=== PATIENT | male | born 1945 | race African-American/Black ===

== ENCOUNTER 2017-09-05 03:41 | Inpatient (IN) | payer MEDICARE ==
[2017-09-05 04:36] LABS: BILIRUBIN,URINE NEGATIVE (NEG); CLARITY,URINE CLEAR; COLOR,URINE YELLOW; GLUCOSE,URINE NEGATIVE (NEG); NITRITE,URINE NEGATIVE (NEG); PH,URINE 6.5; PROTEIN,URINE NEGATIVE (NEG-TRACE); UROBILINOGEN,URINE 0.2 mg/dL (0.2 mg/dL)
[2017-09-05 04:40] LABS: ADD MAN DIFF? NO
[2017-09-05 04:42] LABS: BASO % 1 % (0-3); EOS # 0.1 x10^3/uL (0.0-0.7); EOS % 3 % (0-3); HEMATOCRIT 41.3 % (39.0-53.0); HEMOGLOBIN 13.6 g/dL (13.0-17.5); LYMPH # 1.8 x10^3/uL (1.0-4.8); LYMPH % 41 % (24-48); MEAN CORPUSCULAR HEMOGLOBIN 26 pg (25-35); MEAN CORPUSCULAR HGB CONC 33 g/dL (31-37); MEAN CORPUSCULAR VOLUME 80 fL (79-100); MONO # 0.5 x10^3/uL (0.0-1.1); MONO % 11 % (0-9); NEUT # 1.9 x10^3uL (1.8-7.7); NEUT % 45 % (31-73); PLATELET COUNT 156 x10^3/uL (140-400); RED BLOOD COUNT 5.18 x10^6/uL (4.30-5.70); RED CELL DISTRIBUTION WIDTH 14.5 % (11.5-14.5); WHITE BLOOD COUNT 4.3 x10^3/uL (4.0-11.0)
[2017-09-05 04:44] LABS: BACTERIA,URINE 0 /HPF (0-FEW); RBC,URINE 0 /HPF (0-2); WBC,URINE 0 /HPF (0-4)
[2017-09-05] MEDS: cloNIDine HCL 0.1 MG TABLET PO (04:49)
[2017-09-05 04:53] LABS: INR 3.5 (0.8-1.1)
[2017-09-05 04:57] LABS: ANION GAP 10 (6-14); BLOOD UREA NITROGEN 18 mg/dL (8-26); BUN/CREATININE RATIO 16 (6-20); CALCIUM 8.9 mg/dL (8.5-10.1); CARBON DIOXIDE 24 mmol/L (21-32); CHLORIDE 108 mmol/L (98-107); CREATININE 1.1 mg/dL (0.7-1.3); GFR 79.8; GLUCOSE 105 mg/dL (70-99); POTASSIUM 3.6 mmol/L (3.5-5.1); SODIUM 142 mmol/L (136-145)
[2017-09-05] MEDS ORDERED: 0.9 % SOD CHL for STERILE FIELD 10 ML DISP.SYRIN. (04:59)
[2017-09-05 05:00] LABS: TROPONINI < 0.017 ng/mL (0.000-0.055)
[2017-09-05 05:02] LABS: ALBUMIN 3.3 g/dL (3.4-5.0); ALBUMIN/GLOBULIN RATIO 0.8 (1.0-1.7); ALK PHOS 63 U/L (46-116); ALT (SGPT) 31 U/L (16-63); AST (SGOT) 33 U/L (15-37); TOTAL BILIRUBIN 0.1 mg/dL (0.2-1.0); TOTAL PROTEIN 7.3 g/dL (6.4-8.2)
[2017-09-05] MEDS ORDERED: LABETALOL 20 MG/4 ML DISP.SYRIN. IVP (05:30)
[2017-09-05] MEDS: LABETALOL 20 MG/4 ML DISP.SYRIN. IVP (05:45)
[2017-09-05] MEDS ORDERED: amLODIPine BESYLATE 5 MG TABLET PO (09:00)
[2017-09-05 09:19] LABS: TROPONINI < 0.017 ng/mL (0.000-0.055)
[2017-09-05] MEDS ORDERED: ENOXAPARIN 40 MG/0.4 ML SYRINGE. SQ ×2 (10:00→14:00)
[2017-09-05 12:09] LABS: TROPONINI < 0.017 ng/mL (0.000-0.055)
[2017-09-05] MEDS ORDERED: DOCUSATE SODIUM 100 MG CAPSULE. PO (13:45)
[2017-09-05] MEDS ORDERED: traMADol 50 MG TABLET PO (13:45)
[2017-09-05] MEDS ORDERED: MORPHINE SULFATE 4 MG/ML DISP.SYRIN. IV (13:45)
[2017-09-05] MEDS ORDERED: ONDANSETRON PF 4 MG/2 ML VIAL. IV (13:45)
[2017-09-05] MEDS ORDERED: hydrALAZINE 20 MG/ML VIAL. IVP (13:45)
[2017-09-05] MEDS ORDERED: ACETAMINOPHEN 325 MG TABLET. PO (13:45)
[2017-09-05] MEDS ORDERED: WARFARIN 10 MG TABLET. PO (17:00)
[2017-09-05] MEDS: TAMSULOSIN 0.4 MG CAP.ER.24H. PO (20:35)
[2017-09-05] MEDS: FINASTERIDE 5 MG TABLET. PO (20:35)
[2017-09-05] MEDS ORDERED: TAMSULOSIN 0.4 MG CAP.ER.24H. PO (21:00)
[2017-09-06 06:10] LABS: ADD MAN DIFF? NO; BASO % 0 % (0-3); EOS # 0.1 x10^3/uL (0.0-0.7); EOS % 2 % (0-3); HEMATOCRIT 40.4 % (39.0-53.0); HEMOGLOBIN 13.2 g/dL (13.0-17.5); LYMPH # 1.4 x10^3/uL (1.0-4.8); LYMPH % 26 % (24-48); MEAN CORPUSCULAR HEMOGLOBIN 26 pg (25-35); MEAN CORPUSCULAR HGB CONC 33 g/dL (31-37); MEAN CORPUSCULAR VOLUME 80 fL (79-100); MONO # 0.5 x10^3/uL (0.0-1.1); MONO % 10 % (0-9); NEUT # 3.4 x10^3uL (1.8-7.7); NEUT % 62 % (31-73); PLATELET COUNT 165 x10^3/uL (140-400); RED BLOOD COUNT 5.04 x10^6/uL (4.30-5.70); RED CELL DISTRIBUTION WIDTH 14.6 % (11.5-14.5); WHITE BLOOD COUNT 5.4 x10^3/uL (4.0-11.0)
[2017-09-06 06:43] LABS: ANION GAP 10 (6-14); BLOOD UREA NITROGEN 13 mg/dL (8-26); CALCIUM 9.2 mg/dL (8.5-10.1); CARBON DIOXIDE 24 mmol/L (21-32); CHLORIDE 107 mmol/L (98-107); CREATININE 1.1 mg/dL (0.7-1.3); GFR 79.8; GLUCOSE 91 mg/dL (70-99); POTASSIUM 4.2 mmol/L (3.5-5.1); SODIUM 141 mmol/L (136-145)
[2017-09-06] MEDS ORDERED: amLODIPine BESYLATE 5 MG TABLET PO (09:00)
[2017-09-06 09:16] LABS: INR 3.1 (0.8-1.1); PROTHROMBIN TIME PATIENT 30.3 SEC (11.7-14.0)
[2017-09-06] MEDS: amLODIPine BESYLATE 5 MG TABLET PO (09:18)
== END 2017-09-06 18:34 | disposition home or self-care (01) | DRG 880 ==
LOC: ER 03:41 → 2 NORTH 05:00
DX: F41.9 Anxiety disorder, unspecified (principal); E78.00 Pure hypercholesterolemia, unspecified; R33.8 Other retention of urine; N40.1 Benign prostatic hyperplasia with lower urinary tract symptoms; I25.2 Old myocardial infarction; E78.5 Hyperlipidemia, unspecified; I10 Essential (primary) hypertension; K21.9 Gastro-esophageal reflux disease without esophagitis; Z86.711 Personal history of pulmonary embolism; Z86.718 Personal history of other venous thrombosis and embolism; Z79.01 Long term (current) use of anticoagulants; Z95.828 Presence of other vascular implants and grafts; Z82.49 Family history of ischemic heart disease and other diseases of the circulatory system; Z81.8 Family history of other mental and behavioral disorders; Z83.3 Family history of diabetes mellitus
CPT/HCPCS: 36415; 51702; 71045; 80048; 80053; 81001; 84484; 85025; 85610; 93005; 99285-25

== ENCOUNTER 2018-01-21 22:10 | Emergency (ER) | payer MEDICARE ==
[2018-01-21 23:23] LABS: ADD MAN DIFF? NO
[2018-01-21] MEDS: IV NORMAL SALINE 1000ML BAG 1,000 ML IV (23:25)
[2018-01-21 23:28] LABS: BASO % 1 % (0-3); EOS # 0.1 x10^3/uL (0.0-0.7); EOS % 2 % (0-3); HEMATOCRIT 41.4 % (39.0-53.0); LYMPH # 1.6 x10^3/uL (1.0-4.8); LYMPH % 35 % (24-48); MEAN CORPUSCULAR HEMOGLOBIN 28 pg (25-35); MEAN CORPUSCULAR HGB CONC 34 g/dL (31-37); MEAN CORPUSCULAR VOLUME 81 fL (79-100); MONO # 0.4 x10^3/uL (0.0-1.1); MONO % 8 % (0-9); NEUT # 2.6 x10^3uL (1.8-7.7); NEUT % 54 % (31-73); PLATELET COUNT 182 x10^3/uL (140-400); RED CELL DISTRIBUTION WIDTH 14.7 % (11.5-14.5); WHITE BLOOD COUNT 4.8 x10^3/uL (4.0-11.0)
[2018-01-21 23:29] LABS: BILIRUBIN,URINE NEGATIVE (NEG); CLARITY,URINE TURBID; COLOR,URINE RED; GLUCOSE,URINE NEGATIVE (NEG); NITRITE,URINE NEGATIVE (NEG); PH,URINE 5.5; PROTEIN,URINE 30 mg/dL (NEG-TRACE); UROBILINOGEN,URINE 0.2 mg/dL (0.2 mg/dL)
[2018-01-21 23:34] LABS: ANION GAP 11 (6-14); BLOOD UREA NITROGEN 14 mg/dL (8-26); BUN/CREATININE RATIO 11 (6-20); CALCIUM 9.3 mg/dL (8.5-10.1); CARBON DIOXIDE 24 mmol/L (21-32); CHLORIDE 106 mmol/L (98-107); CREATININE 1.3 mg/dL (0.7-1.3); GFR 65.8; GLUCOSE 100 mg/dL (70-99); POTASSIUM 4.1 mmol/L (3.5-5.1); SODIUM 141 mmol/L (136-145)
[2018-01-21 23:35] LABS: INR 1.8 (0.8-1.1); PARTIAL THROMBOPLASTIN TIME 38 SEC (24-38); PROTHROMBIN TIME PATIENT 20.4 SEC (11.7-14.0); RBC,URINE TNTC /HPF (0-2)
[2018-01-21 23:37] LABS: BACTERIA,URINE MANY /HPF (0-FEW)
[2018-01-21 23:40] LABS: ALBUMIN 3.8 g/dL (3.4-5.0); ALK PHOS 70 U/L (46-116); ALT (SGPT) 37 U/L (16-63); AST (SGOT) 38 U/L (15-37); TOTAL BILIRUBIN 0.2 mg/dL (0.2-1.0); TOTAL PROTEIN 7.7 g/dL (6.4-8.2)
== END 2018-01-22 01:22 | disposition home or self-care (01) ==
LOC: ER 01-22 01:22
DX: N30.01 Acute cystitis with hematuria (principal); E78.00 Pure hypercholesterolemia, unspecified; I10 Essential (primary) hypertension; Z86.718 Personal history of other venous thrombosis and embolism; N40.0 Benign prostatic hyperplasia without lower urinary tract symptoms
CPT/HCPCS: 36415; 80053; 81001; 85025; 85610; 85730; 96365; 99284-25; J0690; J7030

== ENCOUNTER 2018-09-13 00:42 | Emergency (ER) | payer MEDICARE ==
[2018-01-22 00:53] VITALS: BP 174/85
[~2018-09-13 00:42] MED LIST: AMLO5TAB4 PO; ATOR20TA58 PO; CEPH-264 PO; FINA5TAB4 PO; TAMS0.4C2 PO; TAMS0.4C97 PO; WARF10TA40 PO
== END 2018-09-13 02:50 | disposition left against medical advice (07) ==
LOC: ER 00:42
DX: R31.9 Hematuria, unspecified (principal); Z53.21 Procedure and treatment not carried out due to patient leaving prior to being seen by health care provider

== ENCOUNTER 2018-12-29 10:52 | Observation (INO) | payer MEDICARE, BC ==
[~2018-12-29] VITALS: Ht 175.3 cm; Wt 92.7 kg
--- NOTE | 2018-12-29 11:35 | PHYS DOC ---
Past Medical History Past Medical History: Diabetes-Type II, DVT, High Cholesterol, Hypertension, Other Additional Past Medical Histor: PULM EMBOLISM, HEMO, ENLARGED PROSTATE, ENLARGED AORTA &HEART Past Surgical History: Other Additional Past Surgical Histo: IVC FILTER, BACK SX X3, ACHILES LEFT Alcohol Use: None Drug Use: None Adult General Chief Complaint Chief Complaint: CHEST PAIN HPI HPI 73-year-old male, with past history of hypertension, diabetes, thromboembolic disease, currently on Xarelto, with a past history of multiple pulmonary emboli and an IVC filter, who presents to the emergency department for evaluation of intermittent chest discomfort today, described as an achiness in the center of his chest. He denies any shortness of breath, but this chest discomfort is worsened with exertion. He denies any diaphoresis, nausea, vomiting, dizziness or lightheadedness. There are no alleviating or exacerbating factors to his symptoms. He is followed by Dr. Newton, currently at the [place]. Chest pain has been intermittent, and the patient is not having any pain at this time. Review of Systems Review of Systems Constitutional: Denies fever or chills [] Eyes: Denies change in visual acuity, redness, or eye pain [] HENT: Denies nasal congestion or sore throat [] Respiratory: Denies cough or shortness of breath [] Cardiovascular: No additional information not addressed in HPI [] GI: Denies abdominal pain, nausea, vomiting, bloody stools or diarrhea [] : Denies dysuria or hematuria [] Musculoskeletal: Denies back pain or joint pain [] Integument: Denies rash or skin lesions [] Neurologic: Denies headache, focal weakness or sensory changes [] Endocrine: Denies polyuria or polydipsia [] All other systems were reviewed and found to be within normal limits, except as documented in this note. Current Medications Current Medications Current Medications Medications (Trade) Dose Ordered Sig/Eugene Start Time Stop Time Status Last Admin Dose Admin Aspirin (Children'S Aspirin) 162 mg 1X ONCE 12/29/18 12:00 12/29/18 12:01 DC 12/29/18 11:53 162 MG Nitroglycerin (Nitro-Bid Oint) 1 inch 1X ONCE 12/29/18 12:00 12/29/18 12:01 DC 12/29/18 11:54 1 INCH Allergies Allergies Allergies Coded Allergies Type Severity Reaction Last Updated Verified No Known Drug Allergies 12/29/18 No Physical Exam Physical Exam PHYSICAL EXAM: CONSTITUTIONAL: Well developed, well nourished HEAD: normocephalic, atraumatic EENT: PERRL, EOMI. Conjunctivae normal color, sclerae non-icteric; moist mucous membranes. NECK: Supple, non-tender; no meningismus. LUNGS: Lungs CTA, breathing even and unlabored. Normal air movement. HEART: Regular rate and rhythm, no murmur CHEST: No deformity; non-tender ABDOMEN: The abdomen is soft, and non-tender, no masses or bruits. EXTREM: Normal ROM; no deformity, no calf tenderness. Normal pulses palpable in all extremities. There is no pedal edema. SKIN: No rash; no diaphoresis NEURO: Alert; normal speech and cognition; CN's grossly intact; strength grossly intact without focal deficit. BACK: No CVA TTP. Current Patient Data Vital Signs Vital Signs Date Time Temp Pulse Resp B/P (MAP) Pulse Ox O2 Delivery O2 Flow Rate FiO2 12/29/18 11:54 54 143/75 12/29/18 10:54 98.2 18 98 Room Air 98.2 Lab Values Laboratory Tests Test 12/29/18 11:05 White Blood Count 3.2 x10^3/uL (4.0-11.0) L Red Blood Count 4.90 x10^6/uL (4.30-5.70) Hemoglobin 13.1 g/dL (13.0-17.5) Hematocrit 39.3 % (39.0-53.0) Mean Corpuscular Volume 80 fL (79-100) Mean Corpuscular Hemoglobin 27 pg (25-35) Mean Corpuscular Hemoglobin Concent 34 g/dL (31-37) Red Cell Distribution Width 14.9 % (11.5-14.5) H Platelet Count 159 x10^3/uL (140-400) Neutrophils (%) (Auto) 40 % (31-73) Lymphocytes (%) (Auto) 48 % (24-48) Monocytes (%) (Auto) 9 % (0-9) Eosinophils (%) (Auto) 3 % (0-3) Basophils (%) (Auto) 1 % (0-3) Neutrophils # (Auto) 1.3 x10^3uL (1.8-7.7) L Lymphocytes # (Auto) 1.5 x10^3/uL (1.0-4.8) Monocytes # (Auto) 0.3 x10^3/uL (0.0-1.1) Eosinophils # (Auto) 0.1 x10^3/uL (0.0-0.7) Basophils # (Auto) 0.0 x10^3/uL (0.0-0.2) Sodium Level 140 mmol/L (136-145) Potassium Level 3.8 mmol/L (3.5-5.1) Chloride Level 105 mmol/L (98-107) Carbon Dioxide Level 26 mmol/L (21-32) Anion Gap 9 (6-14) Blood Urea Nitrogen 11 mg/dL (8-26) Creatinine 1.3 mg/dL (0.7-1.3) Estimated GFR (Cockcroft-Gault) 65.7 BUN/Creatinine Ratio 8 (6-20) Glucose Level 103 mg/dL (70-99) H Calcium Level 9.1 mg/dL (8.5-10.1) Total Bilirubin 0.4 mg/dL (0.2-1.0) Aspartate Amino Transferase (AST) 31 U/L (15-37) Alanine Aminotransferase (ALT) 30 U/L (16-63) Alkaline Phosphatase 57 U/L (46-116) Troponin I Quantitative < 0.017 ng/mL (0.000-0.055) UD-Zco-X-Type Natriuretic Peptide 17 pg/mL (0-124) Total Protein 7.6 g/dL (6.4-8.2) Albumin 3.5 g/dL (3.4-5.0) Albumin/Globulin Ratio 0.9 (1.0-1.7) L Laboratory Tests 12/29/18 11:05 Laboratory Tests 12/29/18 11:05 EKG EKG [Normal sinus rhythm a rate of 61 bpm with APCs, left axis deviation, normal intervals, there is inferior lateral ST/T changes or T wave inversion, somewhat more pronounced, but not significantly changed, compared to patient's prior EKG.] Radiology/Procedures Radiology/Procedures [PROCEDURE: PORTABLE CHEST 1V Chest radiograph 12/29/2018 11:29 AM INDICATION: Chest pain COMPARISON: September 05, 2017 TECHNIQUE: Portable upright frontal view of the chest is provided. FINDINGS: The cardiomediastinal silhouette is borderline enlarged, stable. There are no pleural effusions. There is no pulmonary vascular congestion. There is no pneumothorax. The lungs are clear. No significant osseous abnormality is identified. IMPRESSION: No acute cardiopulmonary process.] Course & Med Decision Making Course & Med Decision Making Pertinent Labs and Imaging studies reviewed. (See chart for details) [] Dragon Disclaimer Dragon Disclaimer This electronic medical record was generated, in whole or in part, using a voice recognition dictation system. Departure Departure Impression: Primary Impression: Chest pain Disposition: ADMITTED INPATIENT Admitting Physician: ARMAND Condition: STABLE Referrals: ELLY NEWTON MD (PCP) WINIFRED SAXENA MD Dec 29, 2018 11:35
[2018-12-29 11:46] LABS: BASO % 1 % (0-3); EOS # 0.1 x10^3/uL (0.0-0.7); EOS % 3 % (0-3); HEMATOCRIT 39.3 % (39.0-53.0); HEMOGLOBIN 13.1 g/dL (13.0-17.5); LYMPH # 1.5 x10^3/uL (1.0-4.8); LYMPH % 48 % (24-48); MEAN CORPUSCULAR HEMOGLOBIN 27 pg (25-35); MEAN CORPUSCULAR HGB CONC 34 g/dL (31-37); MEAN CORPUSCULAR VOLUME 80 fL (79-100); MONO # 0.3 x10^3/uL (0.0-1.1); MONO % 9 % (0-9); NEUT # 1.3 x10^3uL (1.8-7.7); NEUT % 40 % (31-73); PLATELET COUNT 159 x10^3/uL (140-400); RED CELL DISTRIBUTION WIDTH 14.9 % (11.5-14.5); WHITE BLOOD COUNT 3.2 x10^3/uL (4.0-11.0)
[2018-12-29] MEDS ORDERED: ASPIRIN CHEWABLE 81 MG TABLET. PO ONE (12:00)
[2018-12-29] MEDS ORDERED: NITROGLYCERIN OINT 1 GM PACKET. TP ONE (12:00)
[2018-12-29 12:02] LABS: CALCIUM 9.1 mg/dL (8.5-10.1); CREATININE 1.3 mg/dL (0.7-1.3); GFR 65.7; POTASSIUM 3.8 mmol/L (3.5-5.1)
[2018-12-29 12:07] LABS: ALBUMIN 3.5 g/dL (3.4-5.0); ALBUMIN/GLOBULIN RATIO 0.9 (1.0-1.7); TOTAL BILIRUBIN 0.4 mg/dL (0.2-1.0); TOTAL PROTEIN 7.6 g/dL (6.4-8.2)
--- NOTE | 2018-12-29 12:16 | RAD ---
Chest radiograph 12/29/2018 11:29 AM INDICATION: Chest pain COMPARISON: September 05, 2017 TECHNIQUE: Portable upright frontal view of the chest is provided. FINDINGS: The cardiomediastinal silhouette is borderline enlarged, stable. There are no pleural effusions. There is no pulmonary vascular congestion. There is no pneumothorax. The lungs are clear. No significant osseous abnormality is identified. IMPRESSION: No acute cardiopulmonary process. Electronically signed by: Cathy Mendoza MD (12/29/2018 12:13 PM) [id number]
[2018-12-29] MEDS ORDERED: ONDANSETRON PF 4 MG/2 ML VIAL. IV PRN (12:45)
[2018-12-29] MEDS ORDERED: TEMAZEPAM 7.5 MG CAPSULE PO PRN (12:45)
[2018-12-29] MEDS ORDERED: hydrALAZINE 20 MG/ML VIAL. IVP PRN (12:45)
[2018-12-29] MEDS ORDERED: HYDROcodone/APAP 5/325MG 1 TAB TABLET PO PRN (12:45)
[2018-12-29] MEDS ORDERED: ACETAMINOPHEN 500 MG TABLET PO PRN (12:45)
[2018-12-29] MEDS ORDERED: MORPHINE SULFATE 2 MG/ML VIAL. IV PRN (12:45)
--- NOTE | 2018-12-29 12:55 | PDOC1 ---
History and Physical Date of Admission Date of Admission DATE: 12/29/18 TIME: 12:51 Identification/Chief Complaint Chief Complaint Chest pain intermittent 3 days Source Source: Caregiver, Chart review, Patient History of Present Illness History of Present Illness 73-year-old -[place] male, known patient of Dr. Newton, usually goes to [place], chest pain intermittent and described as left-sided chest heaviness 3 days No identifiable precipitating or alleviating factor. nO radiation, No diapho resis, may be SOA, no presyncopal symptoms. History of hypertension DVT and PE, no known personal CAD, was previously on warfarin, then shifted to Xarelto. Has some penile urethral stricture and BPH symptoms planned for some urologic procedure on January. Claims compliance to BP meds and Xarelto. WBC 3.2, the rest of the labs okay. Blood pressure is on the high side, 140s 150s, asymptomatic aside from chest pain Past Medical History Cardiovascular: HTN Pulmonary: Bronchitis, Pulmonary embolus GI: GERD Renal/: Benign prostatic enlarg. Past Surgical History Past Surgical History: No pertinent history Family History Family History: Hypertension Social History Smoke: No ALCOHOL: none Drugs: None Current Problem List Problem List Problems Medical Problems: (1) Chest pain Status: Acute Current Medications Current Medications Current Medications Aspirin (Children'S Aspirin) 162 mg 1X ONCE PO Last administered on 12/29/18at 11:53; Start 12/29/18 at 12:00; Stop 12/29/18 at 12:01; Status DC Nitroglycerin (Nitro-Bid Oint) 1 inch 1X ONCE TP Last administered on 12/29/18at 11:54; Start 12/29/18 at 12:00; Stop 12/29/18 at 12:01; Status DC Amlodipine Besylate (Norvasc) 25 mg DAILY PO ; Start 12/30/18 at 09:00; Stop 12/30/18 at 09:00; Status DC Finasteride (Proscar) 5 mg QHS PO ; Start 12/29/18 at 21:00 Tamsulosin HCl (Flomax) 0.8 mg QHS PO ; Start 12/29/18 at 21:00 Warfarin Sodium (Coumadin Per Pharmacy) 1 each PRN DAILY PRN MC SEE COMMENTS; Start 12/29/18 at 12:45 Hydralazine HCl (Apresoline Inj) 10 mg PRN Q4HRS PRN IVP ELEVATED BP, SBP>160; Start 12/29/18 at 12:45 Temazepam (Restoril) 7.5 mg PRN QHS PRN PO INSOMNIA 1ST CHOICE; Start 12/29/18 at 12:45 Ondansetron HCl (Zofran) 4 mg PRN Q6HRS PRN IV NAUSEA/VOMITING 1ST CHOICE; Start 12/29/18 at 12:45 Acetaminophen/ Hydrocodone Bitart (Lortab 5/325) 1 tab PRN Q4HRS PRN PO SEVERE PAIN; Start 12/29/18 at 12:45 Acetaminophen (Tylenol) 500 mg PRN Q6HRS PRN PO MILD PAIN / TEMP; Start 12/29/18 at 12:45 Morphine Sulfate (Morphine Sulfate) 1 mg PRN Q2HR PRN IV SEVERE PAIN; Start 12/29/18 at 12:45 Amlodipine Besylate (Norvasc) 2.5 mg DAILY PO ; Start 12/30/18 at 09:00 Active Scripts Active Keflex (Cephalexin) 500 Mg Capsule 1 Cap PO TID Flomax (Tamsulosin Hcl) 0.4 Mg Cap.er.24h 0.8 Mg PO QHS 30 Days Reported Norvasc (Amlodipine Besylate) 5 Mg Tablet 5 Tab PO DAILY Finasteride 5 Mg Tablet 5 Mg PO QHS Warfarin Sodium 10 Mg Tablet 10 Mg PO 1700 Allergies Allergies: Coded Allergies: No Known Drug Allergies (Unverified , 12/29/18) ROS Review of System BPH symptoms, low flow,weak flow, decreased stream, otherwise rest of ROS 14 pt neg, positive for chest pain,as per history of present illness Physical Exam General: Alert, Oriented X3, Cooperative, No acute distress HEENT: Atraumatic, PERRLA, EOMI Lungs: Clear to auscultation, Normal air movement Heart: S1S2, RRR, no thrills, no rubs, no gallops, no murmurs Cardiovascular: S1, S2 Abdomen: Normal bowel sounds, Soft, No tenderness, No hepatosplenomegaly, No masses Male Genitals Exam: normal genitalia, normal prostate Extremities: No clubbing, No cyanosis, No edema, Normal pulses, No tenderness/swelling Skin: No rashes, No breakdown, No significant lesion Neuro: Normal gait, Normal speech, Strength at 5/5 X4 ext, Normal tone, Sensation intact, Cranial nerves 3-12 NL, Reflexes 2+ Psych/Mental Status: Mental status NL, Mood NL Vitals Vitals Vital Signs Date Time Temp Pulse Resp B/P (MAP) Pulse Ox O2 Delivery O2 Flow Rate FiO2 12/29/18 11:54 54 143/75 12/29/18 10:54 98.2 18 98 Room Air 98.2 Labs Labs Laboratory Tests Test 12/29/18 11:05 White Blood Count 3.2 x10^3/uL (4.0-11.0) Red Blood Count 4.90 x10^6/uL (4.30-5.70) Hemoglobin 13.1 g/dL (13.0-17.5) Hematocrit 39.3 % (39.0-53.0) Mean Corpuscular Volume 80 fL (79-100) Mean Corpuscular Hemoglobin 27 pg (25-35) Mean Corpuscular Hemoglobin Concent 34 g/dL (31-37) Red Cell Distribution Width 14.9 % (11.5-14.5) Platelet Count 159 x10^3/uL (140-400) Neutrophils (%) (Auto) 40 % (31-73) Lymphocytes (%) (Auto) 48 % (24-48) Monocytes (%) (Auto) 9 % (0-9) Eosinophils (%) (Auto) 3 % (0-3) Basophils (%) (Auto) 1 % (0-3) Neutrophils # (Auto) 1.3 x10^3uL (1.8-7.7) Lymphocytes # (Auto) 1.5 x10^3/uL (1.0-4.8) Monocytes # (Auto) 0.3 x10^3/uL (0.0-1.1) Eosinophils # (Auto) 0.1 x10^3/uL (0.0-0.7) Basophils # (Auto) 0.0 x10^3/uL (0.0-0.2) Sodium Level 140 mmol/L (136-145) Potassium Level 3.8 mmol/L (3.5-5.1) Chloride Level 105 mmol/L (98-107) Carbon Dioxide Level 26 mmol/L (21-32) Anion Gap 9 (6-14) Blood Urea Nitrogen 11 mg/dL (8-26) Creatinine 1.3 mg/dL (0.7-1.3) Estimated GFR (Cockcroft-Gault) 65.7 BUN/Creatinine Ratio 8 (6-20) Glucose Level 103 mg/dL (70-99) Calcium Level 9.1 mg/dL (8.5-10.1) Total Bilirubin 0.4 mg/dL (0.2-1.0) Aspartate Amino Transf (AST/SGOT) 31 U/L (15-37) Alanine Aminotransferase (ALT/SGPT) 30 U/L (16-63) Alkaline Phosphatase 57 U/L (46-116) Troponin I Quantitative < 0.017 ng/mL (0.000-0.055) QD-Dks-U-Type Natriuretic Peptide 17 pg/mL (0-124) Total Protein 7.6 g/dL (6.4-8.2) Albumin 3.5 g/dL (3.4-5.0) Albumin/Globulin Ratio 0.9 (1.0-1.7) Laboratory Tests Test 12/29/18 11:05 White Blood Count 3.2 x10^3/uL (4.0-11.0) Red Blood Count 4.90 x10^6/uL (4.30-5.70) Hemoglobin 13.1 g/dL (13.0-17.5) Hematocrit 39.3 % (39.0-53.0) Mean Corpuscular Volume 80 fL (79-100) Mean Corpuscular Hemoglobin 27 pg (25-35) Mean Corpuscular Hemoglobin Concent 34 g/dL (31-37) Red Cell Distribution Width 14.9 % (11.5-14.5) Platelet Count 159 x10^3/uL (140-400) Neutrophils (%) (Auto) 40 % (31-73) Lymphocytes (%) (Auto) 48 % (24-48) Monocytes (%) (Auto) 9 % (0-9) Eosinophils (%) (Auto) 3 % (0-3) Basophils (%) (Auto) 1 % (0-3) Neutrophils # (Auto) 1.3 x10^3uL (1.8-7.7) Lymphocytes # (Auto) 1.5 x10^3/uL (1.0-4.8) Monocytes # (Auto) 0.3 x10^3/uL (0.0-1.1) Eosinophils # (Auto) 0.1 x10^3/uL (0.0-0.7) Basophils # (Auto) 0.0 x10^3/uL (0.0-0.2) Sodium Level 140 mmol/L (136-145) Potassium Level 3.8 mmol/L (3.5-5.1) Chloride Level 105 mmol/L (98-107) Carbon Dioxide Level 26 mmol/L (21-32) Anion Gap 9 (6-14) Blood Urea Nitrogen 11 mg/dL (8-26) Creatinine 1.3 mg/dL (0.7-1.3) Estimated GFR (Cockcroft-Gault) 65.7 BUN/Creatinine Ratio 8 (6-20) Glucose Level 103 mg/dL (70-99) Calcium Level 9.1 mg/dL (8.5-10.1) Total Bilirubin 0.4 mg/dL (0.2-1.0) Aspartate Amino Transf (AST/SGOT) 31 U/L (15-37) Alanine Aminotransferase (ALT/SGPT) 30 U/L (16-63) Alkaline Phosphatase 57 U/L (46-116) Troponin I Quantitative < 0.017 ng/mL (0.000-0.055) LH-Kyo-Q-Type Natriuretic Peptide 17 pg/mL (0-124) Total Protein 7.6 g/dL (6.4-8.2) Albumin 3.5 g/dL (3.4-5.0) Albumin/Globulin Ratio 0.9 (1.0-1.7) VTE Prophylaxis Ordered VTE Prophylaxis Devices: Yes VTE Pharmacological Prophylaxi: Yes Assessment/Plan Assessment/Plan Chest heaviness, chest pain intermittent 3 days Hypertension accelerated History DVT PE on Xarelto - clots [facility] BPH sxs - has urologic procedures planned for jan PLAn: CARdiac diet today NPO pst [place] in case CARds consult Cycle enzymes Resume BPH meds and xarelto Full code OBS Seen at EUGENE RACHEL MD Dec 29, 2018 12:55
[2018-12-29] MEDS: ANTI-COAG MONITOR BY PHARMACY. MC PRN (13:13)
--- NOTE | 2018-12-29 13:14 | EKG ---
[facility] [address] [place] [address] Test Date: 2018-12-29 Test Time: 10:59:53 Pat Name: BECCA MACHADO Department: Room: Gender: M Wellness Program Administrator: : [id number] Requested By: WINIFRED SAXENA Order Number: [id number] Reading MD: Measurements Intervals [place] Rate: 61 P: 35 PA: 210 QRS: -8 QRSD: 72 T: -48 QT: 374 QTc: 382 Interpretive Statements SINUS RHYTHM ATRIAL PREMATURE COMPLEX(ES), BIGEMINY LEFTWARD AXIS QRS(T) CONTOUR ABNORMALITY CONSIDER ANTEROSEPTAL MYOCARDIAL DAMAGE T ABNORMALITY IN ANTERIOR LEADS INFERIOR LEADS ABNORMAL ECG RI6.01 Unconfirmed report No previous ECG available for comparison
[2018-12-29 13:30] LABS: PROTHROMBIN TIME PATIENT 14.7 SEC (11.7-14.0)
[2018-12-29 13:35] VITALS: BP 157/85
--- NOTE | 2018-12-29 13:51 | PDOC2 ---
CARDIAC CONSULT DATE OF CONSULT Date of Consult DATE: 12/29/18 TIME: 13:45 REASON FOR CONSULT Reason for Consult: Chest pain REFERRING PHYSICIAN Referring Physician: Dr. Page SOURCE Source: Chart review, Patient HISTORY OF PRESENT ILLNESS HISTORY OF PRESENT ILLNESS This is a 73 yo male who presented with a 3-day history of intermittent chest pain. Located in his central chest. Describes as aching/burning sensation. Associated with mild nausea. No diaphoresis, palpitations, shortness of breath, LE edema, orthopnea, or recent illness/fevers. Pain seems to be brought on by stress. Seems to resolved with activity. Walks 3 miles per day without any chest pain or shortness of breath. Thinks symptoms are all due to medications he has been on for urethral stricture. Is planned to have urologic procedure in January. Has a history of DVT/PE. has been on warfarin therapy for many years. Switched to Xarelto 3 months ago. Additional history of hypertension and hyperlipidemia. Follows with Dr. Newton at the [place]. Heart rate noted in the upper 40's. Does increase with activity. Has felt more fatigued over the last month or so. Reports he normally feels well between 6am - noon. Then begins to feel poor as the day progresses. Report having cath without intervention within last 5 years at the [place]. PAST MEDICAL HISTORY Cardiovascular: HTN, Hyperlipidemia GI: GERD Heme/Onc: Other (PVT/PE) Psych: Anxiety, Depression, Other (PTSD) Musculoskeletal: Osteoarthritis, Other (DDD) Infectious disease: No pertinent hx ENT: No pertinent hx Renal/: Benign prostatic enlarg., Other (urinary retention) Endocrine: No pertinent hx Dermatology: No pertinent hx PAST SURGICAL HISTORY Past Surgical History: Other (back surgery, IVC filter) FAMILY HISTORY Family History: Diabetes, Heart Disease, Hypertension SOCIAL HISTORY Smoke: No ALCOHOL: none Drugs: None Lives: with Family CURRENT MEDICATIONS CURRENT MEDICATIONS Current Medications Medications (Trade) Dose Ordered Sig/[place] Route PRN Reason Start Time Stop Time Status Last Admin Dose Admin Aspirin (Children'S Aspirin) 162 mg 1X ONCE PO 12/29/18 12:00 12/29/18 12:01 DC 12/29/18 11:53 Nitroglycerin (Nitro-Bid Oint) 1 inch 1X ONCE TP 12/29/18 12:00 12/29/18 12:01 DC 12/29/18 11:54 Info (Anti-Coagulation Monitoring By Pharmacy) 1 each PRN DAILY PRN MC SEE COMMENTS 12/29/18 13:00 12/29/18 13:13 ALLERGIES ALLERGIES: Coded Allergies: No Known Drug Allergies (Unverified , 12/29/18) ROS Review of System 14 point ROS conducted with pertinent positives noted above in HPI. PHYSICAL EXAM General: Alert, Oriented X3, Cooperative, No acute distress HEENT: Atraumatic, Mucous membr. moist/pink Lungs: Clear to auscultation, Normal air movement Heart: Normal S1, Normal S2, Other (SB- rate near 50 at rest) Abdomen: Soft, No tenderness Extremities: No edema Skin: No significant lesion Neuro: Normal speech Psych/Mental Status: Mental status NL, Other (flat affect) MUSCULOSKELETAL: Osteoarthritic changes both hands VITALS VITALS Vital Signs Date Time Temp Pulse Resp B/P (MAP) Pulse Ox O2 Delivery O2 Flow Rate FiO2 12/29/18 13:13 46 16 137/72 (93) 96 Room Air 12/29/18 10:54 98.2 98.2 LABS Lab: Laboratory Tests Test 12/29/18 11:05 White Blood Count 3.2 x10^3/uL (4.0-11.0) Red Blood Count 4.90 x10^6/uL (4.30-5.70) Hemoglobin 13.1 g/dL (13.0-17.5) Hematocrit 39.3 % (39.0-53.0) Mean Corpuscular Volume 80 fL (79-100) Mean Corpuscular Hemoglobin 27 pg (25-35) Mean Corpuscular Hemoglobin Concent 34 g/dL (31-37) Red Cell Distribution Width 14.9 % (11.5-14.5) Platelet Count 159 x10^3/uL (140-400) Neutrophils (%) (Auto) 40 % (31-73) Lymphocytes (%) (Auto) 48 % (24-48) Monocytes (%) (Auto) 9 % (0-9) Eosinophils (%) (Auto) 3 % (0-3) Basophils (%) (Auto) 1 % (0-3) Neutrophils # (Auto) 1.3 x10^3uL (1.8-7.7) Lymphocytes # (Auto) 1.5 x10^3/uL (1.0-4.8) Monocytes # (Auto) 0.3 x10^3/uL (0.0-1.1) Eosinophils # (Auto) 0.1 x10^3/uL (0.0-0.7) Basophils # (Auto) 0.0 x10^3/uL (0.0-0.2) Prothrombin Time 14.7 SEC (11.7-14.0) Prothromb Time International Ratio 1.2 (0.8-1.1) Sodium Level 140 mmol/L (136-145) Potassium Level 3.8 mmol/L (3.5-5.1) Chloride Level 105 mmol/L (98-107) Carbon Dioxide Level 26 mmol/L (21-32) Anion Gap 9 (6-14) Blood Urea Nitrogen 11 mg/dL (8-26) Creatinine 1.3 mg/dL (0.7-1.3) Estimated GFR (Cockcroft-Gault) 65.7 BUN/Creatinine Ratio 8 (6-20) Glucose Level 103 mg/dL (70-99) Calcium Level 9.1 mg/dL (8.5-10.1) Total Bilirubin 0.4 mg/dL (0.2-1.0) Aspartate Amino Transf (AST/SGOT) 31 U/L (15-37) Alanine Aminotransferase (ALT/SGPT) 30 U/L (16-63) Alkaline Phosphatase 57 U/L (46-116) Troponin I Quantitative < 0.017 ng/mL (0.000-0.055) RC-Gdu-V-Type Natriuretic Peptide 17 pg/mL (0-124) Total Protein 7.6 g/dL (6.4-8.2) Albumin 3.5 g/dL (3.4-5.0) Albumin/Globulin Ratio 0.9 (1.0-1.7) ECHOCARDIOGRAM ECHOCARDIOGRAM LV EF 60% The right ventricle is mildly dilated The right atrium is mildly dilated The left atrium size is normal. Doppler and Color Flow revealed mild aortic regurgitation. There is no significant aortic valvular stenosis. Doppler and Color Flow revealed no mitral valve regurgitation noted. Doppler and Color Flow revealed mild tricuspid regurgitation.Unable to accurate ly asses the PA pressure due to a suboptimal doppler interrogation Doppler and Color Flow revealed trace to mild pulmonic valvular regurgitation. The aortic root is normal in size. There is no evidence of significant pericardial effusion. DATE: 11/18/13 1534 ASSESSMENT/PLAN ASSESSMENT/PLAN 1. Chest pain, atypical. Initial troponin negative. 2. Hypertension; controlled 3. Hyperlipidemia; statin 4. Sinus bradycardia. Resting HR in upper 40's, low 50's. Asymptomatic. Appropriated chronotropic response. No pauses thus far on tele. 5. H/o DVT and PE on Xarelto 6. BPH; self caths. urologic procedure planned in January at . Recommendations Trend troponin Lipid panel Echo to assess LV systolic function Monitor tele overnight Consider outpatient event monitor and stress. [facility]. Newton. JERONIMO HOU APRN Dec 29, 2018 13:51
[2018-12-29 15:00] VITALS: BP 156/81
--- NOTE | 2018-12-29 15:47 | CARD ---
MR#: [id number] Date of Study: 12/29/2018 Ordering Physician: JERONIMO HOU, Referring Physician: EUGENE PEREZ Tech: Delia Ji [facility] APPROVED REPORT EXAM: Two-dimensional and M-mode echocardiogram with Doppler and color Doppler. Other Information Quality : GoodHR: 49bpm Rhythm : Bradycardia INDICATION Chest Pain 2D DIMENSIONS RVDd3.0 (2.9-3.5cm)Left Atrium(2D)4.0 (1.6-4.0cm) IVSd1.4 (0.7-1.1cm)Aortic Root(2D)4.1 (2.0-3.7cm) LVDd4.2 (3.9-5.9cm)LVOT Diameter2.4 (1.8-2.4cm) PWd0.8 (0.7-1.1cm)LVDs2.9 (2.5-4.0cm) FS (%) 31.7 %SV47.9 ml LVEF(%)60.1 (>50%) M-Mode DIMENSIONS Left Atrium(MM)4.24 (2.5-4.0cm)Aortic Root4.06 (2.2-3.7cm) Aortic Valve AoV Peak Alexey.128.9cm/sAoV VTI23.0cm AO Peak GR.6.6mmHgLVOT Peak Alexey.111.0cm/s AO Mean GR.3mmHgAVA (VMAX)3.84cm2 JOSEFINA (VTI)3.80cm2 Mitral Valve MV E Rknbzcsz73.1cm/sMV DECEL [id number] MV A Soerokav03.5cm/sE/A Ratio0.7 Pulmonary Valve PV Peak Faafbmlb187.4cm/s LEFT VENTRICLE The left ventricle is normal size. Proximal septal thickening is noted. The left ventricular systolic function is normal. The Ejection Fraction is 55-60%. There is normal LV segmental wall motion. Trans mitral Doppler flow pattern is Grade I-abnormal relaxation pattern. RIGHT VENTRICLE The right ventricle is normal size. There is normal right ventricular wall thickness. The right ventr icular systolic function is normal. ATRIA The left atrium is mildly dilated. The right atrium size is normal. The interatrial septum is intact with no evidence for an atrial septal defect or patent foramen ovale as noted on 2-D or Doppler imagi ng. AORTIC VALVE The aortic valve is normal in structure and function. The aortic valve is trileaflet. Doppler and Col or Flow revealed mild aortic regurgitation. There is no significant aortic valvular stenosis. There i s no aortic valvular vegetation. MITRAL VALVE The mitral valve is normal in structure and function. There is no evidence of mitral valve prolapse. There is no mitral valve stenosis. Doppler and Color Flow revealed no mitral valve regurgitation note d. TRICUSPID VALVE The tricuspid valve is normal in structure and function. Doppler and Color Flow revealed no tricuspid valve regurgitation noted. There is no tricuspid valve prolapse or vegetation. There is no tricuspid valve stenosis. PULMONIC VALVE The pulmonary valve is normal in structure and function. Doppler and Color Flow revealed trace pulmon ic valvular regurgitation. There is no pulmonic valvular stenosis. GREAT VESSELS The aortic root is mildly enlarged at 4.4cm. The ascending aorta is Mildly dilated at 3.9cm. The IVC is normal in size and collapses >50% with inspiration. PERICARDIAL EFFUSION There is no evidence of significant pericardial effusion. Critical Notification Critical Value: No <Conclusion> The left ventricular systolic function is normal. The Ejection Fraction is 55-60%. There is normal LV segmental wall motion. Transmitral Doppler flow pattern is Grade I-abnormal relaxation pattern. Doppler and Color Flow revealed mild aortic regurgitation. There is no evidence of significant pericardial effusion. Signed by : Kemar Nuñez, Electronically Approved : 12/29/2018 15:47:28
[2018-12-29] MEDS ORDERED: RIVA10TA PO (15:53)
[2018-12-29] MEDS ORDERED: RIVAROXABAN 10 MG TABLET. PO SCH (17:00)
[2018-12-29 19:49] VITALS: BP 153/81
[2018-12-29] MEDS ORDERED: TAMSULOSIN 0.4 MG CAP.ER.24H. PO SCH (21:00)
[2018-12-29] MEDS ORDERED: FINASTERIDE 5 MG TABLET. PO SCH (21:00)
[2018-12-29 22:10] VITALS: BP 146/80
[2018-12-30 03:55] VITALS: BP 127/74
[2018-12-30 04:47] LABS: CHOLESTEROL/HDL RATIO 7.1
[2018-12-30 07:00] VITALS: BP 128/74
[2018-12-30] MEDS: amLODIPine BESYLATE 5 MG TABLET PO SCH ×2 (09:00→09:27)
[2018-12-30] MEDS ORDERED: amLODIPine BESYLATE 5 MG TABLET PO SCH (09:00)
--- NOTE | 2018-12-30 10:57 | PDOC3 ---
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 - clots happened > 10 yrs [facility] BPH sxs - has urologic procedures planned for aug Final Diagnosis Problems Medical Problems: (1) Accelerated hypertension Status: Acute (2) Atypical chest pain Status: Acute (3) Chest pain Status: Acute (4) Sinus bradycardia Status: Acute Brief Hospital Course Allergies Allergies Coded Allergies Type Severity Reaction Last Updated Verified No Known Drug Allergies 12/29/18 No Vital Signs Vital Signs Date Time Temp Pulse Resp B/P (MAP) Pulse Ox O2 Delivery O2 Flow Rate FiO2 12/30/18 07:00 98.0 55 14 128/74 (92) 96 Room Air 98.0 Lab Results Laboratory Tests Test 12/29/18 11:05 12/29/18 15:55 12/29/18 18:35 12/30/18 04:05 White Blood Count 3.2 x10^3/uL (4.0-11.0) Red Blood Count 4.90 x10^6/uL (4.30-5.70) Hemoglobin 13.1 g/dL (13.0-17.5) Hematocrit 39.3 % (39.0-53.0) Mean Corpuscular Volume 80 fL (79-100) Mean Corpuscular Hemoglobin 27 pg (25-35) Mean Corpuscular Hemoglobin Concent 34 g/dL (31-37) Red Cell Distribution Width 14.9 % (11.5-14.5) Platelet Count 159 x10^3/uL (140-400) Neutrophils (%) (Auto) 40 % (31-73) Lymphocytes (%) (Auto) 48 % (24-48) Monocytes (%) (Auto) 9 % (0-9) Eosinophils (%) (Auto) 3 % (0-3) Basophils (%) (Auto) 1 % (0-3) Neutrophils # (Auto) 1.3 x10^3uL (1.8-7.7) Lymphocytes # (Auto) 1.5 x10^3/uL (1.0-4.8) Monocytes # (Auto) 0.3 x10^3/uL (0.0-1.1) Eosinophils # (Auto) 0.1 x10^3/uL (0.0-0.7) Basophils # (Auto) 0.0 x10^3/uL (0.0-0.2) Prothrombin Time 14.7 SEC (11.7-14.0) Prothromb Time International Ratio 1.2 (0.8-1.1) Sodium Level 140 mmol/L (136-145) Potassium Level 3.8 mmol/L (3.5-5.1) Chloride Level 105 mmol/L (98-107) Carbon Dioxide Level 26 mmol/L (21-32) Anion Gap 9 (6-14) Blood Urea Nitrogen 11 mg/dL (8-26) Creatinine 1.3 mg/dL (0.7-1.3) Estimated GFR (Cockcroft-Gault) 65.7 BUN/Creatinine Ratio 8 (6-20) Glucose Level 103 mg/dL (70-99) Calcium Level 9.1 mg/dL (8.5-10.1) Total Bilirubin 0.4 mg/dL (0.2-1.0) Aspartate Amino Transf (AST/SGOT) 31 U/L (15-37) Alanine Aminotransferase (ALT/SGPT) 30 U/L (16-63) Alkaline Phosphatase 57 U/L (46-116) Troponin I Quantitative < 0.017 ng/mL (0.000-0.055) < 0.017 ng/mL (0.000-0.055) < 0.017 ng/mL (0.000-0.055) ZM-Epz-N-Type Natriuretic Peptide 17 pg/mL (0-124) Total Protein 7.6 g/dL (6.4-8.2) Albumin 3.5 g/dL (3.4-5.0) Albumin/Globulin Ratio 0.9 (1.0-1.7) Triglycerides Level 146 mg/dL (0-150) Cholesterol Level 198 mg/dL (0-200) LDL Cholesterol, Calculated 141 mg/dL (0-100) VLDL Cholesterol, Calculated 29 mg/dL (0-40) Non-HDL Cholesterol Calculated 170 mg/dL (0-129) HDL Cholesterol 28 mg/dL (40-60) Cholesterol/HDL Ratio 7.1 Laboratory Tests Test 12/29/18 11:05 12/29/18 15:55 7/3/19 18:35 12/30/18 04:05 White Blood Count 3.2 x10^3/uL (4.0-11.0) Red Blood Count 4.90 x10^6/uL (4.30-5.70) Hemoglobin 13.1 g/dL (13.0-17.5) Hematocrit 39.3 % (39.0-53.0) Mean Corpuscular Volume 80 fL (79-100) Mean Corpuscular Hemoglobin 27 pg (25-35) Mean Corpuscular Hemoglobin Concent 34 g/dL (31-37) Red Cell Distribution Width 14.9 % (11.5-14.5) Platelet Count 159 x10^3/uL (140-400) Neutrophils (%) (Auto) 40 % (31-73) Lymphocytes (%) (Auto) 48 % (24-48) Monocytes (%) (Auto) 9 % (0-9) Eosinophils (%) (Auto) 3 % (0-3) Basophils (%) (Auto) 1 % (0-3) Neutrophils # (Auto) 1.3 x10^3uL (1.8-7.7) Lymphocytes # (Auto) 1.5 x10^3/uL (1.0-4.8) Monocytes # (Auto) 0.3 x10^3/uL (0.0-1.1) Eosinophils # (Auto) 0.1 x10^3/uL (0.0-0.7) Basophils # (Auto) 0.0 x10^3/uL (0.0-0.2) Prothrombin Time 14.7 SEC (11.7-14.0) Prothromb Time International Ratio 1.2 (0.8-1.1) Sodium Level 140 mmol/L (136-145) Potassium Level 3.8 mmol/L (3.5-5.1) Chloride Level 105 mmol/L (98-107) Carbon Dioxide Level 26 mmol/L (21-32) Anion Gap 9 (6-14) Blood Urea Nitrogen 11 mg/dL (8-26) Creatinine 1.3 mg/dL (0.7-1.3) Estimated GFR (Cockcroft-Gault) 65.7 BUN/Creatinine Ratio 8 (6-20) Glucose Level 103 mg/dL (70-99) Calcium Level 9.1 mg/dL (8.5-10.1) Total Bilirubin 0.4 mg/dL (0.2-1.0) Aspartate Amino Transf (AST/SGOT) 31 U/L (15-37) Alanine Aminotransferase (ALT/SGPT) 30 U/L (16-63) Alkaline Phosphatase 57 U/L (46-116) Troponin I Quantitative < 0.017 ng/mL (0.000-0.055) < 0.017 ng/mL (0.000-0.055) < 0.017 ng/mL (0.000-0.055) VP-Gvj-W-Type Natriuretic Peptide 17 pg/mL (0-124) Total Protein 7.6 g/dL (6.4-8.2) Albumin 3.5 g/dL (3.4-5.0) Albumin/Globulin Ratio 0.9 (1.0-1.7) Triglycerides Level 146 mg/dL (0-150) Cholesterol Level 198 mg/dL (0-200) LDL Cholesterol, Calculated 141 mg/dL (0-100) VLDL Cholesterol, Calculated 29 mg/dL (0-40) Non-HDL Cholesterol Calculated 170 mg/dL (0-129) HDL Cholesterol 28 mg/dL (40-60) Cholesterol/HDL Ratio 7.1 Brief Hospital Course Mr. Stubbs is a 73 old [sex] who presented with [ ] 73-year-old -Citizen Of [place] male, known patient of Dr. Newton, usually goes to [place], chest pain intermittent and described as left-sided chest heaviness 3 days No identifiable precipitating or alleviating factor. nO radiation, No diaphoresis, may be SOA, no presyncopal symptoms. History of hypertension DVT and PE, no known personal CAD, was previously on warfarin, then shifted to Xarelto. Has some penile urethral stricture and BPH symptoms planned for some urologic procedure on January. Claims compliance to BP meds and Xarelto. WBC 3.2, the rest of the labs okay. Blood pressure is on the high side, 140s 150s, asymptomatic aside from chest pain COURSE; Echo normal, cleared from cards to go home today ff Dr Bui [place] NO new meds Discharge Information Condition at Discharge: Improved Follow Up: Weeks (Dr Bui in [place]) Disposition/Orders: D/C to Home Scheduled Amlodipine Besylate (Norvasc) 5 Mg Tablet, 5 TAB PO DAILY, #30 Ref 5 (Reported) Entered as Reported by: ESTELLA TRACY on 09/05/17 0750 Last Action: Continued on 12/29/181230 by EUGENE PEREZ Finasteride (Finasteride) 5 Mg Tablet, 5 MG PO QHS, (Reported) Entered as Reported by: DENIS BIGG on 11/17/13 2107 Last Action: Continued on 12/29/181230 by EUGENE PEREZ Rivaroxaban (Xarelto) 10 Mg Tablet, 1 TAB PO DAILY for Hx of DVT, #10 (Reported) Entered as Reported by: RUKHSANA PYLE on 12/29/181552 Last Taken: Unknown Dose on 12/28/18 Last Action: New Order on 12/29/181552 by RUKHSANA PYLE Tamsulosin Hcl (Flomax) 0.4 Mg Cap.er.24h, 0.8 MG PO QHS for 30 Days, #60 Prescribed by: JET MCCOY MD on 09/06/17 1300 Last Action: Continued on 12/29/181230 by EUGENE HORN MD Dec 30, 2018 10:57
[2018-12-30 11:00] VITALS: BP 137/76
[2018-12-30] MEDS: ANTI-COAG MONITOR BY PHARMACY. MC PRN (11:10)
== END 2018-12-30 12:40 | disposition home or self-care (01) ==
LOC: ER 10:52 → 2 NORTH 12:30
PROVIDERS: ADMIT Internal Medicine; ATTEND Internal Medicine
DX: R07.89 Other chest pain (principal); I10 Essential (primary) hypertension; E11.9 Type 2 diabetes mellitus without complications; N40.0 Benign prostatic hyperplasia without lower urinary tract symptoms; K21.9 Gastro-esophageal reflux disease without esophagitis; N35.819 Other urethral stricture, male, unspecified site; E78.00 Pure hypercholesterolemia, unspecified; Z86.718 Personal history of other venous thrombosis and embolism; Z83.3 Family history of diabetes mellitus; Z79.01 Long term (current) use of anticoagulants; Z86.711 Personal history of pulmonary embolism; Z82.49 Family history of ischemic heart disease and other diseases of the circulatory system; E78.5 Hyperlipidemia, unspecified
CPT/HCPCS: 36415; 71045; 80053; 80061; 83880; 84484; 85025; 85610; 93005; 93306; 97165; 97535; 99284; G0378; G0379